=== PATIENT | female | born 1990 | race Caucasian/White ===

== ENCOUNTER → 2017-01-10 | Outpatient (CLI) | payer MEDICAID | LOC: FIMAGING 11:12 | PROVIDERS: ATTEND Internal Medicine Endocrinology, Diabetes & Metabolism | DX: E06.3 Autoimmune thyroiditis (principal) ==

== ENCOUNTER 2017-06-06 11:44 | Emergency (ER) | payer MEDICAID ==
[2017-06-06 11:56] VITALS: RESP 16; TEMP 98.8
--- NOTE | 2017-06-06 13:12 | EDPHY ---
H & P Time Seen by Provider: 06/06/17 12:04 HPI/ROS: CHIEF COMPLAINT: Right wrist fracture, facial laceration HISTORY OF PRESENT ILLNESS: 26-year-old female presents to the emergency department with fracture to her right wrist. The patient was hiking and fell. She was able to hike out on her own. She went to urgent care and had x-rays and a splint placed. She was sent to the emergency department for further evaluation. She was told to follow up with orthopedic surgery. She did sustain a laceration to the right side of her chin. She did not lose consciousness. Denies headache. Denies neck or back pain. Denies chest pain or difficulty breathing. Denies paresthesias in her upper lower extremities. She is right-handed. REVIEW OF SYSTEMS: Constitutional: No fever, no chills. Eyes: No double or blurry vision. ENT: No sore throat. Respiratory: No cough, no shortness of breath. Cardiac: No chest pain. Gastrointestinal: No abdominal pain, vomiting or diarrhea. Genitourinary: No dysuria. Musculoskeletal: No neck or back pain. Skin: Laceration as above. No rashes. Neurological: No headache. Past Medical/Surgical History: Nikolas's thyroiditis Social History: Smoking Status: Never smoked Physical Exam: General Appearance: Alert, no distress. Mentating normally and answering questions appropriately. at bedside. Eyes: Pupils equal and round. Extraocular motions are all intact. ENT: Mouth: Mucous membranes moist. No dental injury or malocclusion. Respiratory: No wheezing, rhonchi, or rales, lungs are clear to auscultation. Cardiovascular: Regular rate and rhythm. Gastrointestinal: Abdomen is soft and nontender, no masses, no rebound or guarding, bowel sounds normal. Neurological: Alert and oriented x 3, cranial nerves II through XII grossly intact Skin: 1.5 cm laceration to the right anterior lateral aspect of her chin. Warm and dry, no rashes. Musculoskeletal: Nontender to palpate along the cervical, thoracic or lumbar spine. Neck is supple. Extremities: Right wrist is in a sugar-tong Ortho Glass splint and she is in a sling. She has full range of motion of her fingers. Normal capillary refill. Normal sensation to light touch. Psychiatric: Patient is oriented X 3, there is no agitation. Constitutional: Initial Vital Signs Temperature (C) 37.1 C 06/06/17 11:47 Heart Rate 68 06/06/17 11:47 Respiratory Rate 16 06/06/17 11:47 Blood Pressure 117/68 06/06/17 11:47 O2 Sat (%) 98 06/06/17 11:47 O2 Delivery Mode Room Air Allergies/Adverse Reactions: No Known Allergies Allergy (Unverified 06/06/17 11:47) Home Medications: Medication Instructions Recorded Levonorgestrel [Mirena] 1 each IY 06/06/17 Levothyroxine [Synthroid 88 mcg 88 mcg PO DAILY06 06/06/17 (*)] Medical Decision Making - Diagnostics Imaging Results: Outpatient imaging x-rays were reviewed in the PAC system which revealed comminuted intra-articular distal radius fracture with only minimal displacement. Imaging: I viewed and interpreted images myself Procedures: Laceration repair. Verbal consent was obtained from the patient. The 1 cm laceration on the right anterior chin was anesthetized using 1% lidocaine with epinephrine. The wound was irrigated with saline, draped and explored to its base with a gloved finger. There were no deep structures involved. The wound was repaired with 6 0 Prolene, 3 sutures. The wound repair was simple. The procedure was performed by myself. ED Course/Re-evaluation: 26-year-old female presents emergency department with facial laceration, wound was repaired, see procedure note. The patient also brought her x-ray of her right wrist on a disc. She has a comminuted intra-articular distal radius fracture with only minimal displacement. She was kept in her splint and sling and given orthopedic referral to Dr. Jarod Gotti who was on-call for Orthopedics. She will follow up early next week. Differential Diagnosis: Head injury including but not limited to concussion, skull fracture, intraparenchymal contusion, subarachnoid, subdural and epidural hematoma. Arm pain including but not limited to fracture, dislocation, contusion, sprain Departure - Departure Disposition: Home, Routine, Self-Care Clinical Impression: Facial laceration Qualifiers: Encounter type: initial encounter Qualified Code(s): S01.81XA - Laceration without foreign body of other part of head, initial encounter Fracture of right distal radius Qualifiers: Encounter type: initial encounter Fracture type: closed Fracture morphology: unspecified fracture morphology Qualified Code(s): S52.501A - Unspecified fracture of the lower end of right radius, initial encounter for closed fracture Condition: Good Instructions: Care For Your Stitches (ED), Laceration (ED), Wrist Fracture in Adults (ED) Additional Instructions: Wound Care Follow-Up: Removal of sutures in 5 days. Suture removal is complimentary in uncomplicated cases. Infection or abnormal findings would require reevaluation by the MD. In that case, you may be billed. Keep splint on until follow-up with orthopedic surgeon next week as discussed. Ice and elevate. Ibuprofen 600 mg every 8 hr as needed for pain. Referrals: Jarod Gotti MD [Medical Doctor] - 2-3 days without fail (Orthopedic surgeon on-call) Stand Alone Forms: School Excuse, Work Excuse
[2017-06-06 14:46] VITALS: BP 115/70; PULSE 70; O2SAT 96
== END 2017-06-06 14:45 | disposition home or self-care (01) ==
PROC: 0HQ1XZZ Repair Face Skin, External Approach (ICD-10-PCS; principal; 2017-06-06)
DX: S52.501A Unspecified fracture of the lower end of right radius, initial encounter for closed fracture (principal); S01.81XA Laceration without foreign body of other part of head, initial encounter; W18.39XA Other fall on same level, initial encounter; Y99.8 Other external cause status; Y93.01 Activity, walking, marching and hiking